=== PATIENT | male | born 1990 | race Caucasian/White ===

== ENCOUNTER 2016-07-31 09:54 | Emergency (ER) | payer OTHER, BC ==
[2016-07-31 10:00] VITALS: BP 124/79; PULSE 72; TEMP 98.3; BMI 30.9
--- NOTE | 2016-07-31 10:31 | PDOC ---
History of Present Illness - General Chief Complaint: Injury Stated Complaint: FELL ON LEFT ANKLE Time Seen by Provider: 07/31/16 10:12 History Source: Patient Exam Limitations: No Limitations - History of Present Illness Initial Comments: 07/31/16 10:30 25 yr male with c/o twisting left ankle today at work. Pt states he slipped and rolled the ankle c/o apin and swelling to the outside of ankle. No previous injury. Occurred: reports: just prior to arrival Severity: Yes: moderate Method of Injury: Yes: twisted (left ankle ) Past History - Past Medical History Allergies/Adverse Reactions: Allergies Allergy/AdvReac Type Severity Reaction Status Date / Time No Known Allergies Allergy Verified 07/31/16 09:57 Home Medications: Ambulatory Orders NK [No Known Home Medication] 07/31/16 Other medical history: none - Psycho/Social/Smoking Cessation Hx Anxiety: No Suicidal Ideation: No Smoking History: Never smoked Have you smoked in the past 12 months: No Information on smoking cessation initiated: No Hx Alcohol Use: No Drug/Substance Use Hx: No Substance Use Type: None *Physical Exam - Vital Signs Last Vital Signs Temp Pulse Resp BP Pulse Ox 98.3 F 72 18 124/79 100 07/31/16 09:57 07/31/16 09:57 07/31/16 09:57 07/31/16 09:57 07/31/16 09:57 - Physical Exam General Appearance: Yes: Nourished, Appropriately Dressed HEENT: positive: EOMI, CARMINA Musculoskeletal: positive: Normal Inspection Extremity: positive: Normal Capillary Refill, Swelling (left lateral lower ankle swelling), Other (reased ROM) Integumentary: positive: Normal Color, Dry, Warm Neurologic: positive: Fully Oriented, Alert, Normal Mood/Affect, Normal Response , Motor Strength 5/5 Procedures - Splinting Hand-Made Type: orthoglass (posterior ankle splint placed) ED Treatment Course - RADIOLOGY Radiology Studies Ordered: Category Date Time Status ANKLE & FOOT-LEFT* [RAD] Stat Radiology 07/31/16 10:19 Ordered Medical Decision Making - Medical Decision Making 07/31/16 11:10 cc: left ankle injury yesterday will xray to r/o fx pt took motrin [employer]. consulted with and he will see the patient now in his office, I have discussed with the pt and he has his father who will drive him to his office now. *DC/Admit/Observation/Transfer Diagnosis at time of Disposition: Fibula fracture Qualifiers: Encounter type: initial encounter Fibula location: distal Fracture type: closed Fracture alignment: displaced Laterality: left - Discharge Dispostion Disposition: HOME Condition at time of disposition: Good - Referrals Referrals: Vamsi Wolff MD [Staff Physician] - - Patient Instructions Additional Instructions: go to 's office now keep leg elevated no weight bearing
== END 2016-07-31 11:05 | disposition home or self-care (01) ==
LOC: JERFT 09:54
PROC: 2W3RX1Z Immobilization of Left Lower Leg using Splint (ICD-10-PCS; principal; 2016-07-31)
DX: S82.442A Displaced spiral fracture of shaft of left fibula, initial encounter for closed fracture (principal); W18.30XA Fall on same level, unspecified, initial encounter; Y93.9 Activity, unspecified; Y92.9 Unspecified place or not applicable; Y99.0 Civilian activity done for income or pay
CPT/HCPCS: 73610-TC-LT; 73630-TC-LT; 99282-25

== ENCOUNTER 2021-03-11 16:53 | Emergency (ER) | payer BC ==
[2021-03-11] MEDS ORDERED: FAMOTIDINE 20 MG TABLET PO ONE (17:01)
[2021-03-11] MEDS ORDERED: diphenhydrAMINE HCL 12.5 MG/5 ML UNIT-DOSE CUPS PO ONE (17:01)
[2021-03-11 17:02] VITALS: BP 129/70; PULSE 65; TEMP 98; BMI 27.7
[2021-03-11] MEDS ORDERED: diphenhydrAMINE HCL 50 MG CAPSULE PO ONE (17:04)
[2021-03-11] MEDS ORDERED: diphenhydrAMINE HCL 25 MG CAPSULE (FP) PO ONE (17:05)
[2021-03-11] MEDS ORDERED: FAMOTIDINE 20 MG TABLET ONE (17:05)
== END 2021-03-11 18:10 | disposition home or self-care (01) ==
LOC: FER 16:53
DX: S00.96XA Insect bite (nonvenomous) of unspecified part of head, initial encounter (principal); W57.XXXA Bitten or stung by nonvenomous insect and other nonvenomous arthropods, initial encounter; Y92.9 Unspecified place or not applicable
CPT/HCPCS: 99283-25